=== PATIENT | male | born 1985 | race Caucasian/White ===

== ENCOUNTER 2019-11-20 11:03 | Emergency (ER) | payer SELFPAY ==
[~2019-11-20] VITALS: Ht 190.5 cm; Wt 86.2 kg
[2019-11-20 11:15] VITALS: BP 138/74
[2019-11-20] MEDS ORDERED: Tetanus/Diptheria/Pertussis IM ONE ×2 (11:25→11:30)
--- NOTE | 2019-11-20 11:26 | Emergency Room Report ---
History of Present Illness General Chief Complaint: Laceration Source: Patient Present Illness HPI Disclaimer: Please note that this report is being documented using untapt technology. This can lead to erroneous entry secondary to incorrect interpretation by the dictating instrument. HPI: 34-year-old male presents for evaluation of a scalp laceration. Yesterday , the patient was struck in the back of the head by a skateboard during a ride. There is no loss of consciousness and applied local wound care. He cleaned the wound with hydrogen peroxide and applied Steri-Strips. He denied loss of consciousness, seizure activity, persistent headaches, vomiting, changes in balance, coordination, strength or sensation. He has been in his usual state of health since the head injury, eating and drinking as usual. Denies taking anticoagulants. He has no other medical complaints at this time is requesting evaluation of his wound. 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 There is a 3 cm linear vertically oriented laceration over the occiput. No active bleeding, well approximated, appears to be healing. Resp: Normal work of breathing Skin: 3 cm linear vertically oriented laceration over the occiput with no active bleeding, no surrounding edema, appears to be healing well. No debris visualized. MSK: Normal tone and bulk. Moving all extremities. No obvious deformity. Ambulating with steady gait Neuro: Awake and alert. Mentating appropriately Procedures Laceration/Wound Repair Laceration/Wound Repair : Consent: Verbal Wound Location: head Wound's Depth, Shape: superficial, linear Wound Length (cm): 3 Wound Explored: clean Anesthesia: 1% Lidocaine Volume Anesthetic (ccs): 3 Wound Debrided: None Wound Repaired With: barbara Number of Sutures: 3 Patient Tolerated: Well Complications: None Medical Decision Making Diagnostic Impression: Primary Impression: Laceration ER Course 34-year-old male presents for evaluation 15 hours after head injury and scalp laceration. Patient is awake, alert, ambulatory and has no complaints. He denies headache, vomiting, seizure activity, does not take anticoagulants overall is low risk for intracranial injury according to [facility] head CT guidelines. Does not require emergent imaging at this time. He applied wound care at the time of the initial injury with hydroperoxide. The wound was irrigated and scrubbed here additionally. Appears to be healing already but I was able to pull a small portion of the wound apart during cleaning. It was approximated and closed with 3 barbara. We discussed signs and symptoms of concussion and to not participate in any activities that could result in repeat head injury until he is cleared to resume by physician. Discussed reasons to return to the emergency department and routine wound care instructions. He understands and agrees with plan will be discharged home. Last Vital Signs Date Time Temp Pulse Resp B/P (MAP) Pulse Ox O2 Delivery O2 Flow Rate FiO2 11/20/19 11:09 98.2 62 17 139/78 (98) 99 Room Air Disposition: HOME, SELF-CARE Condition: Stable Scripts No Active Prescriptions or Reported Meds Jurgen Romero MD November 20, 2019 11:26
[2019-11-20] MEDS ORDERED: Lidocaine 1% Plain 30 ml INJ ONE ×2 (11:36→11:45)
[2019-11-20 11:48] VITALS: BP 132/71
== END 2019-11-20 11:48 | disposition home or self-care (01) ==
LOC: EMR 11:35
DX: S01.01XA Laceration without foreign body of scalp, initial encounter (principal); Z23 Encounter for immunization; Y29.XXXA Contact with blunt object, undetermined intent, initial encounter; Y92.9 Unspecified place or not applicable
CPT/HCPCS: 12002; 90471; 90715; 99283; J2001